=== PATIENT | male | born 1960 | race Caucasian/White ===

== ENCOUNTER 2021-11-03 15:01 | Inpatient (IN) ==
[2021-11-03] MEDS ORDERED: Ondansetron 4 MG/2 ML VIAL IVP PRN (17:01)
[2021-11-03] MEDS ORDERED: Naloxone 0.4 MG/ML INJ IVP PRN (17:01)
[2021-11-03] MEDS ORDERED: Acetaminophen 325 MG TABLET PO PRN (17:01)
[2021-11-03] MEDS ORDERED: Ipratropium/Albuterol Neb 3 ML IH PRN (17:05)
[2021-11-03] MEDS: 0.9 % Sodium Chloride 1,000 ML IVC SCH (18:37)
[2021-11-03] MEDS: Pantoprazole 40 MG VIAL IVP SCH (18:37)
[2021-11-03] MEDS ORDERED: Haloperidol Lactate 5 MG/ML VIAL IVP PRN (19:18)
[2021-11-03] MEDS: *HR* LORazepam 2 MG/ML VIAL IVP SCH (20:36)
[2021-11-03] MEDS: Phenytoin 100 MG in Equashield Syringe 1 EACH IVP SCH (20:45)
[2021-11-03] MEDS ORDERED: PHENobarbital 65 MG/ML VIAL IVP SCH ×2 (21:00)
[2021-11-03] MEDS: PHENobarbital 65 MG/ML VIAL IVP SCH (23:16)
[2021-11-04] MEDS: 0.9 % Sodium Chloride 1,000 ML IVC SCH ×2 (03:36→17:14)
[2021-11-04] MEDS: Pantoprazole 40 MG VIAL IVP SCH ×2 (05:07→17:14)
[2021-11-04] MEDS ORDERED: Cefepime HCl 2,000 MG in 0.9 % Sodium Chloride 20 ML IVP SCH (06:00)
[2021-11-04 06:21] LABS: INR 1.3; Prothrombin Time 14.8 Seconds (9.4-12.1)
[2021-11-04 06:56] LABS: Alanine Aminotransferase 9 Units/L (7-52); Albumin/Globulin Ratio 1.5 (1.1-2.2); Alkaline Phosphatase 51 Units/L (34-104); Aspartate Amino Transferase 12 Units/L (13-39); BUN/Creatinine Ratio 22 (6-26); Bilirubin,Indirect 0.3 mg/dL (0.0-1.0); Bilirubin,Total 0.3 mg/dL (0.3-1.0); Blood Urea Nitrogen 17 mg/dL (6-20); Calcium 7.5 mg/dL (8.6-10.3); Carbon Dioxide 24 mEq/L (23-29); Chloride 109 mEq/L (98-107); Glucose 101 mg/dL (70-105); Magnesium 2.1 mg/dL (1.6-2.6); Osmolality,Calculated 288 (280-300); Potassium 4.3 mEq/L (3.5-5.1); Sodium 138 mEq/L (136-145); eGFR For African Americans > 60 (> 60); eGFR For Non-African Americans > 60 (> 60)
[2021-11-04 08:15] LABS: Basophils % 0.4 %; Eosinophils # 0.2 K/mcL (0.0-0.6); Eosinophils % 2.5 %; Hematocrit 32.8 % (37.5-50.1); Hemoglobin 10.7 g/dL (12.9-16.9); Immature Granulocytes % 0.3 % (0-4); Lymphocytes # 1.3 K/mcL (0.6-4.6); Lymphocytes % 15.8 %; Mean Corpuscular HGB Conc 32.6 g/dL (31.6-35.5); Mean Corpuscular Hemoglobin 30.8 pg (28.0-33.3); Mean Corpuscular Volume 94.5 fL (83.0-100.0); Mean Platelet Volume 11.3 fL (9.4-12.4); Monocytes # 0.7 K/mcL (0.0-1.3); Monocytes % 9.2 %; Neutrophils # 5.7 K/mcL (1.6-8.9); Platelet Count 142 K/mcL (140-400); Red Blood Count 3.47 M/mcL (4.19-5.50); Red Cell Distribution Width 14.6 % (11.5-14.5); Segmented Neutrophils % 71.8 %; White Blood Count 7.9 K/mcL (4.3-11.1)
[2021-11-04] MEDS: *HR* LORazepam 2 MG/ML VIAL IVP SCH ×2 (09:44→20:12)
[2021-11-04] MEDS: Phenytoin 100 MG in Equashield Syringe 1 EACH IVP SCH ×2 (09:45→20:01)
[2021-11-04] MEDS ORDERED: *HR* Midazolam HCl 2 MG/2 ML VIAL ONE (10:43)
[2021-11-04] MEDS ORDERED: Lidocaine HCL 4 ML Topical Solution (Laryng-O-Jet Kit Sterile Pak) TP ONE (10:43)
[2021-11-04] MEDS ORDERED: *HR* FentaNYL (PF) 100 MCG/2 ML VIAL ONE (10:43)
[2021-11-04] MEDS ORDERED: *HR* Propofol 200 MG/20 ML VIAL IVP ONE (10:43)
[2021-11-04] MEDS ORDERED: Ondansetron 4 MG/2 ML VIAL ONE (10:43)
[2021-11-04] MEDS ORDERED: Lidocaine -MPF 2% 5 ML VIAL ONE (10:43)
[2021-11-04] MEDS: PHENobarbital 65 MG/ML VIAL IVP SCH ×2 (11:48→23:46)
[2021-11-04] MEDS ORDERED: *HR* HYDROmorphone PF 0.5 MG/0.5 ML SYRINGE IVP PRN (11:59)
[2021-11-04] MEDS ORDERED: *HR* Vasopressin 20 UNIT/ML VIAL ONE (12:14)
[2021-11-04] MEDS ORDERED: *HR* Phenylephrine 10 MG/ML VIAL ONE (12:14)
[2021-11-04] MEDS ORDERED: Albumin Human 5% 12.5 GM/250 ML IV.SOLN ONE (12:14)
[2021-11-04] MEDS ORDERED: *HR* Rocuronium Bromide 50 MG/5 ML VIAL ONE ×2 (13:02→14:42)
[2021-11-04] MEDS: Cefepime HCl 2,000 MG in 0.9 % Sodium Chloride 20 ML IVP SCH ×2 (17:13→23:27)
[2021-11-04 17:14] LABS: ABG Base Excess -4 mEq/L (-2 to 3); ABG HCO3 21 mEq/L (21-27); ABG Oxygen Saturation 94 % (95-98); ABG PCO2 37 mmHg (35-45); ABG PH 7.35 pH Units (7.32-7.45); ABG PO2 72 mmHg (85-104); ABG TCO2 22 mEq/L (20-26); Blood Gas Modality AF; Blood Gas VT 500 cc
[2021-11-04] MEDS ORDERED: FentaNYL (PF) 1,000 MCG/100 ML IV.SOLN IVC SCH (17:30)
[2021-11-04] MEDS ORDERED: Artificial Tears SOLN 15 ML BOTTLE BOTH EYES PRN (17:57)
[2021-11-04] MEDS: Artificial Tears SOLN 15 ML BOTTLE BOTH EYES SCH ×2 (19:51→23:26)
[2021-11-04] MEDS: Chlorhexidine Rinse 15 ML MOUTHWASH MM SCH (19:51)
[2021-11-04 20:22] LABS: Bilirubin,Urine Negative (Negative); Blood,Urine Negative (Negative); Clarity,Urine Clear (Clear); Color,Urine Light-Yellow (Yellow); Glucose,Urine (UA) Normal (Normal); Ketones,Urine 100 mg/dL (Negative); Leukocyte Esterase,Urine Negative (Negative); Mucus,Urine Few per lpf (None-Few); Nitrite,Urine Negative (Negative); Protein,Urine 50 mg/dL (Neg-Trace); RBC,Urine 0-3 per hpf (0-3); Specific Gravity,Urine 1.028 (1.010-1.025); Squamous Epithelial Cell,Urine Few per hpf (None-Few); Urobilinogen,Urine Normal (Normal); WBC,Urine 0-3 per hpf (0-3)
[2021-11-04] MEDS: haloperidoL 1 MG TABLET PO SCH (21:07)
[2021-11-05] MEDS: 0.9 % Sodium Chloride 1,000 ML IVC SCH ×3 (03:54→19:24)
[2021-11-05] MEDS: Artificial Tears SOLN 15 ML BOTTLE BOTH EYES SCH ×2 (03:54→07:36)
[2021-11-05 04:09] LABS: ABG Base Excess -2 mEq/L (-2 to 3); ABG HCO3 23 mEq/L (21-27); ABG Oxygen Saturation 95 % (95-98); ABG PCO2 37 mmHg (35-45); ABG PO2 77 mmHg (85-104); ABG TCO2 24 mEq/L (20-26)
[2021-11-05 04:38] LABS: VBG Ionized Calcium 0.93 mmol/L (1.15-1.35)
[2021-11-05 05:09] LABS: BUN/Creatinine Ratio 21 (6-26); Blood Urea Nitrogen 14 mg/dL (6-20); Calcium 7.3 mg/dL (8.6-10.3); Carbon Dioxide 22 mEq/L (23-29); Chloride 110 mEq/L (98-107); Glucose 91 mg/dL (70-105); Magnesium 1.9 mg/dL (1.6-2.6); Osmolality,Calculated 288 (280-300); Phosphorous 2.1 mg/dL (2.7-4.5); Potassium 4.2 mEq/L (3.5-5.1); Sodium 139 mEq/L (136-145); eGFR For African Americans > 60 (> 60); eGFR For Non-African Americans > 60 (> 60)
[2021-11-05] MEDS: Calcium Gluconate 1gm/50mL 1 GM/50 ML BAG IVPB PRN ×3 (05:53→22:07)
[2021-11-05] MEDS: Pantoprazole 40 MG VIAL IVP SCH ×2 (05:53→19:22)
[2021-11-05 06:55] LABS: Basophils % 0.3 %; Eosinophils # 0.3 K/mcL (0.0-0.6); Eosinophils % 3.9 %; Hematocrit 32.3 % (37.5-50.1); Hemoglobin 9.9 g/dL (12.9-16.9); Immature Granulocytes % 0.4 % (0-4); Immature Platelets 8.3 % (1.1-6.1); Lymphocytes # 1.5 K/mcL (0.6-4.6); Lymphocytes % 20.7 %; Mean Corpuscular HGB Conc 30.7 g/dL (31.6-35.5); Mean Corpuscular Hemoglobin 30.3 pg (28.0-33.3); Mean Corpuscular Volume 98.8 fL (83.0-100.0); Mean Platelet Volume 11.7 fL (9.4-12.4); Monocytes # 0.7 K/mcL (0.0-1.3); Neutrophils # 4.7 K/mcL (1.6-8.9); Platelet Count 132 K/mcL (140-400); Red Blood Count 3.27 M/mcL (4.19-5.50); Red Cell Distribution Width 15.3 % (11.5-14.5); Segmented Neutrophils % 64.7 %; White Blood Count 7.2 K/mcL (4.3-11.1)
[2021-11-05] MEDS ORDERED: Furosemide 40 MG/4 ML VIAL IVP ONE (07:08)
[2021-11-05] MEDS ORDERED: Albumin 25% 25gram/100mL 25 GM/100 ML IV.SOLN IVPB ONE (07:09)
[2021-11-05] MEDS: Cefepime HCl 2,000 MG in 0.9 % Sodium Chloride 20 ML IVP SCH ×3 (07:35→23:07)
[2021-11-05] MEDS: Chlorhexidine Rinse 15 ML MOUTHWASH MM SCH ×2 (07:35→21:43)
[2021-11-05] MEDS: Phenytoin 100 MG in Equashield Syringe 1 EACH IVP SCH ×2 (07:37→19:22)
[2021-11-05 09:10] LABS: ABG Base Excess -3 mEq/L (-2 to 3); ABG HCO3 21 mEq/L (21-27); ABG Oxygen Saturation 94 % (95-98); ABG PCO2 33 mmHg (35-45); ABG PH 7.41 pH Units (7.32-7.45); ABG PO2 71 mmHg (85-104); ABG TCO2 22 mEq/L (20-26); Blood Gas Modality CPAP/PS; Blood Gas Pressure Support 8 cm H2O
[2021-11-05] MEDS: *HR* LORazepam 2 MG/ML VIAL IVP SCH ×2 (09:18→19:38)
[2021-11-05] MEDS: PHENobarbital 65 MG/ML VIAL IVP SCH ×2 (11:37→23:06)
[2021-11-05] MEDS: metroNIDAZOLE 500 MG TABLET PO SCH ×3 (11:37→19:37)
[2021-11-05] MEDS ORDERED: Potassium Phosphate 44 MEQ in 0.9 % Sodium Chloride 250 ML IVPB PRN (12:20)
[2021-11-05] MEDS: haloperidoL 1 MG TABLET PO SCH (21:44)
[2021-11-06] MEDS: 0.9 % Sodium Chloride 1,000 ML IVC SCH (04:52)
[2021-11-06] MEDS: Pantoprazole 40 MG VIAL IVP SCH (05:20)
[2021-11-06 06:23] LABS: Hemoglobin 10.4 g/dL (12.9-16.9); Red Cell Distribution Width 14.9 % (11.5-14.5)
[2021-11-06 06:25] LABS: Basophils # 0.1 K/mcL (0.0-0.2); Basophils % 0.6 %; Eosinophils # 0.5 K/mcL (0.0-0.6); Eosinophils % 5.1 %; Hematocrit 32.2 % (37.5-50.1); Immature Granulocytes % 1.4 % (0-4); Immature Platelets 13.3 % (1.1-6.1); Lymphocytes % 19.4 %; Mean Corpuscular HGB Conc 32.3 g/dL (31.6-35.5); Mean Corpuscular Hemoglobin 30.6 pg (28.0-33.3); Mean Corpuscular Volume 94.7 fL (83.0-100.0); Mean Platelet Volume 11.8 fL (9.4-12.4); Monocytes # 1.1 K/mcL (0.0-1.3); Monocytes % 11.9 %; Neutrophils # 5.5 K/mcL (1.6-8.9); Platelet Count 136 K/mcL (140-400); Segmented Neutrophils % 61.6 %
[2021-11-06 06:36] LABS: Lymphocytes # 1.8 K/mcL (0.6-4.6)
[2021-11-06 07:12] LABS: BUN/Creatinine Ratio 17 (6-26); Blood Urea Nitrogen 12 mg/dL (6-20); Calcium 8.2 mg/dL (8.6-10.3); Carbon Dioxide 24 mEq/L (23-29); Chloride 107 mEq/L (98-107); Glucose 75 mg/dL (70-105); Osmolality,Calculated 290 (280-300); Potassium 3.6 mEq/L (3.5-5.1); Sodium 141 mEq/L (136-145); eGFR For African Americans > 60 (> 60); eGFR For Non-African Americans > 60 (> 60)
[2021-11-06] MEDS ORDERED: Naloxone 0.4 MG/ML INJ IVP PRN ×2 (07:29→09:48)
[2021-11-06] MEDS ORDERED: 0.9 % Sodium Chloride 1,000 ML IVC SCH (07:29)
[2021-11-06] MEDS ORDERED: Haloperidol Lactate 5 MG/ML VIAL IVP PRN ×2 (07:29→09:48)
[2021-11-06] MEDS ORDERED: *HR* Heparin 5,000 UNIT/ML VIAL SQ SCH (07:29)
[2021-11-06] MEDS ORDERED: Ondansetron 4 MG/2 ML VIAL IVP PRN ×2 (07:29→09:48)
[2021-11-06] MEDS ORDERED: Ipratropium/Albuterol Neb 3 ML IH PRN ×2 (07:29→09:48)
[2021-11-06] MEDS ORDERED: Phenytoin 100 MG in Equashield Syringe 1 EACH IVP SCH ×2 (07:30→19:30)
[2021-11-06] MEDS ORDERED: Cefepime HCl 2,000 MG in 0.9 % Sodium Chloride 20 ML IVP SCH (08:00)
[2021-11-06] MEDS ORDERED: Perflutren Lipid Microsphere 1.3 ML in 0.9 % Sodium Chloride 8.7 ML IVP PRN (08:32)
[2021-11-06] MEDS ORDERED: Furosemide 40 MG/4 ML VIAL IVP ONE (08:39)
[2021-11-06] MEDS ORDERED: metroNIDAZOLE 500 MG TABLET PO SCH (09:00)
[2021-11-06] MEDS ORDERED: *HR* LORazepam 2 MG/ML VIAL IVP SCH ×2 (09:00→21:00)
[2021-11-06] MEDS ORDERED: *HR* Dextrose 50 % in Water (Syg) 50 ML SYRINGE IVP PRN ×2 (09:35→09:48)
[2021-11-06] MEDS ORDERED: Dextrose Gel 15 GM/37.5 ML TUBE PO PRN ×4 (09:35→09:48)
[2021-11-06] MEDS ORDERED: D5% in Water 1,000 ML IVC PRN ×2 (09:35→09:48)
[2021-11-06] MEDS ORDERED: PHENobarbital 65 MG/ML VIAL IVP SCH ×2 (11:00)
[2021-11-06] MEDS ORDERED: Insulin LISPRO 300 UNITS/3 ML VIAL SUBQ SCH (12:00)
[2021-11-06] MEDS: Insulin LISPRO 300 UNITS/3 ML VIAL SUBQ SCH ×3 (16:18→23:53)
[2021-11-06] MEDS ORDERED: Pantoprazole 40 MG VIAL IVP SCH ×2 (18:00)
[2021-11-06] MEDS: metroNIDAZOLE 500 MG TABLET PO SCH ×2 (18:14→22:34)
[2021-11-06] MEDS: *HR* Heparin 5,000 UNIT/ML VIAL SQ SCH (18:30)
[2021-11-06] MEDS: Cefepime HCl 2,000 MG in 0.9 % Sodium Chloride 20 ML IVP SCH (18:30)
[2021-11-06] MEDS: *HR* LORazepam 1 MG TABLET PO SCH (20:44)
[2021-11-06] MEDS: PHENobarbital Elixir 20 MG/5 ML UDC PO SCH (20:45)
[2021-11-07] MEDS: Cefepime HCl 2,000 MG in 0.9 % Sodium Chloride 20 ML IVP SCH ×3 (00:16→14:56)
[2021-11-07] MEDS: metroNIDAZOLE 500 MG TABLET PO SCH ×4 (00:16→19:54)
[2021-11-07] MEDS: Insulin LISPRO 300 UNITS/3 ML VIAL SUBQ SCH ×3 (05:53→17:04)
[2021-11-07] MEDS: *HR* Heparin 5,000 UNIT/ML VIAL SQ SCH (06:10)
[2021-11-07] MEDS: *HR* LORazepam 1 MG TABLET PO SCH ×2 (08:26→19:54)
[2021-11-07] MEDS: PHENobarbital Elixir 20 MG/5 ML UDC PO SCH ×2 (08:26→19:54)
[2021-11-07] MEDS: OLANZapine 10 MG TAB.RAPDIS PO SCH (08:26)
[2021-11-07] MEDS ORDERED: Furosemide 40 MG/4 ML VIAL IVP SCH (09:00)
[2021-11-07] MEDS: haloperidoL 1 MG TABLET PO SCH (10:11)
[2021-11-07] MEDS ORDERED: GuaiFENesin Liq 200 MG/10 ML UDC PO PRN (10:20)
[2021-11-07] MEDS ORDERED: Furosemide 40 MG/4 ML VIAL IVP ONE (10:33)
[2021-11-07] MEDS ORDERED: *HR* Heparin 5,000 UNIT/ML VIAL IVP ONE (10:37)
[2021-11-07] MEDS ORDERED: *HR* Heparin 5,000 UNIT/ML VIAL IVP PRN ×2 (10:37)
[2021-11-07] MEDS: Heparin 25,000UNIT/250ML 1/2NS 25,000 UNIT/250 ML IV.SOLN IVC SCH (11:26)
[2021-11-07 16:29] LABS: Heparin anti-factor XA UFH < 0.04 IU/mL (0.30-0.70)
[2021-11-07 16:30] LABS: Prothrombin Time 11.4 Seconds (9.4-12.1)
[2021-11-07 16:36] LABS: Hematocrit 42.7 % (37.5-50.1); Mean Corpuscular Hemoglobin 31.8 pg (28.0-33.3); Mean Corpuscular Volume 93.6 fL (83.0-100.0); Mean Platelet Volume 10.5 fL (9.4-12.4); Platelet Count 247 K/mcL (140-400); Red Blood Count 4.56 M/mcL (4.19-5.50); Red Cell Distribution Width 12.5 % (11.5-14.5); White Blood Count 11.8 K/mcL (4.3-11.1)
[2021-11-07 16:37] LABS: Hemoglobin 14.5 g/dL (12.9-16.9)
[2021-11-07] MEDS ORDERED: *HR* Warfarin 2.5 MG TABLET PO ONE (18:00)
[2021-11-07] MEDS ORDERED: Warfarin perPT PO PRN (18:00)
[2021-11-08] MEDS: Insulin LISPRO 300 UNITS/3 ML VIAL SUBQ SCH ×5 (01:11→23:36)
[2021-11-08 05:24] LABS: Hematocrit 36.4 % (37.5-50.1); Mean Corpuscular HGB Conc 32.7 g/dL (31.6-35.5); Mean Corpuscular Hemoglobin 30.3 pg (28.0-33.3); Mean Corpuscular Volume 92.6 fL (83.0-100.0); Mean Platelet Volume 11.8 fL (9.4-12.4); Platelet Count 187 K/mcL (140-400); Red Blood Count 3.93 M/mcL (4.19-5.50); Red Cell Distribution Width 14.4 % (11.5-14.5); White Blood Count 13.2 K/mcL (4.3-11.1)
[2021-11-08 05:33] LABS: Hemoglobin 11.9 g/dL (12.9-16.9)
[2021-11-08 05:34] LABS: Heparin anti-factor XA UFH 0.67 IU/mL (0.30-0.70); INR 1.4; Prothrombin Time 15.6 Seconds (9.4-12.1)
[2021-11-08 05:43] LABS: BUN/Creatinine Ratio 17 (6-26); Blood Urea Nitrogen 11 mg/dL (6-20); Calcium 8.4 mg/dL (8.6-10.3); Carbon Dioxide 30 mEq/L (23-29); Chloride 98 mEq/L (98-107); Glucose 87 mg/dL (70-105); Osmolality,Calculated 281 (280-300); Phosphorous 2.7 mg/dL (2.7-4.5); Potassium 3.3 mEq/L (3.5-5.1); Sodium 136 mEq/L (136-145); eGFR For African Americans > 60 (> 60); eGFR For Non-African Americans > 60 (> 60)
[2021-11-08 05:49] LABS: Eosinophils # 0.3 K/mcL (0.0-0.6); Lymphocytes # 3.7 K/mcL (0.6-4.6); Monocytes # 1.6 K/mcL (0.0-1.3); Neutrophils # 7.7 K/mcL (1.6-8.9)
[2021-11-08 05:50] LABS: Platelet Estimate Normal (Normal)
[2021-11-08] MEDS: Heparin 25,000UNIT/250ML 1/2NS 25,000 UNIT/250 ML IV.SOLN IVC SCH ×2 (07:40→08:16)
[2021-11-08] MEDS ORDERED: Potassium Chloride Elixir 20 MEQ/15 ML UDC PO ONE (08:07)
[2021-11-08] MEDS ORDERED: Furosemide 20 MG/2 ML VIAL IVP ONE (10:19)
[2021-11-08] MEDS: PHENobarbital Elixir 20 MG/5 ML UDC PO SCH ×2 (11:15→21:02)
[2021-11-08] MEDS: metroNIDAZOLE 500 MG TABLET PO SCH ×3 (11:16→21:02)
[2021-11-08] MEDS: haloperidoL 1 MG TABLET PO SCH (11:16)
[2021-11-08] MEDS: OLANZapine 10 MG TAB.RAPDIS PO SCH (11:16)
[2021-11-08] MEDS: *HR* LORazepam 1 MG TABLET PO SCH ×2 (11:16→21:02)
[2021-11-08] MEDS: Cefepime HCl 2,000 MG in 0.9 % Sodium Chloride 20 ML IVP SCH ×4 (11:17→23:39)
[2021-11-08] MEDS ORDERED: *HR* Warfarin 2.5 MG TABLET PO ONE (18:00)
[2021-11-09 01:41] LABS: Hematocrit 34.8 % (37.5-50.1); Hemoglobin 11.3 g/dL (12.9-16.9); Mean Corpuscular HGB Conc 32.5 g/dL (31.6-35.5); Mean Corpuscular Hemoglobin 30.1 pg (28.0-33.3); Mean Corpuscular Volume 92.8 fL (83.0-100.0); Mean Platelet Volume 12.1 fL (9.4-12.4); Platelet Count 187 K/mcL (140-400); Red Blood Count 3.75 M/mcL (4.19-5.50); Red Cell Distribution Width 14.5 % (11.5-14.5); White Blood Count 12.1 K/mcL (4.3-11.1)
[2021-11-09 02:13] LABS: Eosinophils # 0.7 K/mcL (0.0-0.6); Lymphocytes # 2.2 K/mcL (0.6-4.6); Neutrophils # 8.7 K/mcL (1.6-8.9); Platelet Estimate Normal (Normal); Smudge Cells Present (Not Present)
[2021-11-09] MEDS: Heparin 25,000UNIT/250ML 1/2NS 25,000 UNIT/250 ML IV.SOLN IVC SCH (04:55)
[2021-11-09] MEDS: Insulin LISPRO 300 UNITS/3 ML VIAL SUBQ SCH ×3 (05:28→18:40)
[2021-11-09 05:57] LABS: INR 1.8; Prothrombin Time 19.8 Seconds (9.4-12.1)
[2021-11-09 06:02] LABS: BUN/Creatinine Ratio 15 (6-26); Blood Urea Nitrogen 11 mg/dL (6-20); Calcium 8.1 mg/dL (8.6-10.3); Carbon Dioxide 28 mEq/L (23-29); Chloride 99 mEq/L (98-107); Glucose 123 mg/dL (70-105); Osmolality,Calculated 281 (280-300); Phosphorous 2.8 mg/dL (2.7-4.5); Potassium 3.5 mEq/L (3.5-5.1); Sodium 135 mEq/L (136-145); eGFR For African Americans > 60 (> 60); eGFR For Non-African Americans > 60 (> 60)
[2021-11-09] MEDS: metroNIDAZOLE 500 MG TABLET PO SCH ×3 (09:00→19:49)
[2021-11-09] MEDS: haloperidoL 1 MG TABLET PO SCH (09:00)
[2021-11-09] MEDS: Cefepime HCl 2,000 MG in 0.9 % Sodium Chloride 20 ML IVP SCH ×3 (09:00→23:10)
[2021-11-09] MEDS: PHENobarbital Elixir 20 MG/5 ML UDC PO SCH ×2 (09:00→19:49)
[2021-11-09] MEDS: *HR* LORazepam 1 MG TABLET PO SCH ×2 (09:00→19:49)
[2021-11-09] MEDS: OLANZapine 10 MG TAB.RAPDIS PO SCH (09:00)
[2021-11-09] MEDS ORDERED: Pfizer Covid-19 Vaccine 30MCG/0.3ML IM ONE (11:30)
[2021-11-09] MEDS ORDERED: *HR* Warfarin 1 MG TABLET PO ONE (18:00)
[2021-11-10] MEDS: Heparin 25,000UNIT/250ML 1/2NS 25,000 UNIT/250 ML IV.SOLN IVC SCH (00:11)
[2021-11-10] MEDS: Insulin LISPRO 300 UNITS/3 ML VIAL SUBQ SCH ×4 (00:30→17:08)
[2021-11-10] MEDS: metroNIDAZOLE 500 MG TABLET PO SCH ×3 (08:13→19:54)
[2021-11-10] MEDS: OLANZapine 10 MG TAB.RAPDIS PO SCH (08:13)
[2021-11-10] MEDS: PHENobarbital Elixir 20 MG/5 ML UDC PO SCH ×2 (08:13→19:54)
[2021-11-10] MEDS: *HR* LORazepam 1 MG TABLET PO SCH ×2 (08:13→19:54)
[2021-11-10] MEDS: Cefepime HCl 2,000 MG in 0.9 % Sodium Chloride 20 ML IVP SCH ×2 (08:14→15:47)
[2021-11-10 09:32] LABS: Hematocrit 35.8 % (37.5-50.1); Hemoglobin 11.6 g/dL (12.9-16.9); Mean Corpuscular HGB Conc 32.4 g/dL (31.6-35.5); Mean Corpuscular Hemoglobin 30.1 pg (28.0-33.3); Mean Platelet Volume 11.5 fL (9.4-12.4); Platelet Count 230 K/mcL (140-400); Red Blood Count 3.85 M/mcL (4.19-5.50); Red Cell Distribution Width 14.8 % (11.5-14.5); White Blood Count 13.3 K/mcL (4.3-11.1)
[2021-11-10 09:42] LABS: INR 2.1; Prothrombin Time 23.4 Seconds (9.4-12.1)
[2021-11-10 09:52] LABS: Eosinophils # 1.1 K/mcL (0.0-0.6); Lymphocytes # 2.4 K/mcL (0.6-4.6); Monocytes # 1.9 K/mcL (0.0-1.3); Neutrophils # 7.7 K/mcL (1.6-8.9)
[2021-11-10 09:53] LABS: Platelet Estimate Normal (Normal)
[2021-11-10 09:55] LABS: Alanine Aminotransferase 16 Units/L (7-52); Albumin 3.3 g/dL (3.5-5.7); Albumin/Globulin Ratio 1.3 (1.1-2.2); Alkaline Phosphatase 68 Units/L (34-104); Aspartate Amino Transferase 24 Units/L (13-39); BUN/Creatinine Ratio 10 (6-26); Bilirubin,Total 0.3 mg/dL (0.3-1.0); Blood Urea Nitrogen 7 mg/dL (6-20); Calcium 8.2 mg/dL (8.6-10.3); Carbon Dioxide 28 mEq/L (23-29); Chloride 102 mEq/L (98-107); Globulin 2.5 g/dL (2.4-3.5); Glucose 122 mg/dL (70-105); Osmolality,Calculated 279 (280-300); Potassium 3.6 mEq/L (3.5-5.1); Sodium 135 mEq/L (136-145); Total Protein 5.8 g/dL (6.4-8.9); eGFR For African Americans > 60 (> 60); eGFR For Non-African Americans > 60 (> 60)
[2021-11-10] MEDS: haloperidoL 1 MG TABLET PO SCH (10:39)
[2021-11-10] MEDS ORDERED: *HR* Warfarin 2 MG TABLET PO ONE (18:00)
[2021-11-11] MEDS: Insulin LISPRO 300 UNITS/3 ML VIAL SUBQ SCH ×2 (00:31→06:34)
[2021-11-11] MEDS: Cefepime HCl 2,000 MG in 0.9 % Sodium Chloride 20 ML IVP SCH ×2 (00:32→08:43)
[2021-11-11] MEDS: PHENobarbital Elixir 20 MG/5 ML UDC PO SCH (08:42)
[2021-11-11] MEDS: OLANZapine 10 MG TAB.RAPDIS PO SCH (08:43)
[2021-11-11] MEDS: *HR* LORazepam 1 MG TABLET PO SCH (08:43)
[2021-11-11] MEDS: metroNIDAZOLE 500 MG TABLET PO SCH (08:43)
[2021-11-11] MEDS: haloperidoL 1 MG TABLET PO SCH (09:01)
[2021-11-11 10:09] VITALS: BP 110/76; PULSE 90; TEMP 98.3; O2SAT 93
[2021-11-11 10:12] LABS: Basophils % 0.3 %; Eosinophils # 0.5 K/mcL (0.0-0.6); Eosinophils % 3.7 %; Hematocrit 34.7 % (37.5-50.1); Hemoglobin 11.2 g/dL (12.9-16.9); Immature Granulocytes % 7.1 % (0-4); Lymphocytes # 2.3 K/mcL (0.6-4.6); Lymphocytes % 17.5 %; Mean Corpuscular HGB Conc 32.3 g/dL (31.6-35.5); Mean Corpuscular Hemoglobin 29.8 pg (28.0-33.3); Mean Corpuscular Volume 92.3 fL (83.0-100.0); Mean Platelet Volume 11.7 fL (9.4-12.4); Monocytes # 1.1 K/mcL (0.0-1.3); Monocytes % 8.2 %; Neutrophils # 8.3 K/mcL (1.6-8.9); Platelet Count 229 K/mcL (140-400); Red Blood Count 3.76 M/mcL (4.19-5.50); Red Cell Distribution Width 15.1 % (11.5-14.5); Segmented Neutrophils % 63.2 %; White Blood Count 13.1 K/mcL (4.3-11.1)
[2021-11-11 10:18] LABS: INR 2.4; Prothrombin Time 26.2 Seconds (9.4-12.1)
[2021-11-11 10:32] LABS: Alanine Aminotransferase 22 Units/L (7-52); Albumin 3.4 g/dL (3.5-5.7); Albumin/Globulin Ratio 1.4 (1.1-2.2); Alkaline Phosphatase 70 Units/L (34-104); Aspartate Amino Transferase 43 Units/L (13-39); BUN/Creatinine Ratio 7 (6-26); Bilirubin,Total 0.3 mg/dL (0.3-1.0); Blood Urea Nitrogen 5 mg/dL (6-20); Calcium 8.5 mg/dL (8.6-10.3); Carbon Dioxide 27 mEq/L (23-29); Chloride 102 mEq/L (98-107); Globulin 2.4 g/dL (2.4-3.5); Glucose 127 mg/dL (70-105); Osmolality,Calculated 283 (280-300); Potassium 3.9 mEq/L (3.5-5.1); Sodium 137 mEq/L (136-145); Total Protein 5.8 g/dL (6.4-8.9); eGFR For African Americans > 60 (> 60); eGFR For Non-African Americans > 60 (> 60)
[2021-11-11 11:44] LABS: Influenza A PCR Negative (Negative); Influenza B PCR Negative (Negative); Resp. Syncytial Virus PCR Negative (Negative)
[2021-11-11 11:49] LABS: SARS-CoV-2 by PCR (In House) Negative (Negative)
[2021-11-11] MEDS ORDERED: *HR* Warfarin 1 MG TABLET PO ONE (18:00)
== END 2021-11-11 12:24 | DRG 163 ==
LOC: 3ANU → SUATTDRO 19:18 → ICNU 11-04 14:39 → 3BNU 11-06 14:54
PROVIDERS: ADMIT Student in an Organized Health Care Education/Training Program; ATTEND Nurse Practitioner